=== PATIENT | male | born 1985 | race Caucasian/White ===

== ENCOUNTER 2017-03-05 13:42 | Emergency (ER) | payer BC ==
[~2017-03-05] VITALS: Ht 190.5 cm; Wt 112.5 kg
[2017-03-05 13:48] VITALS: TEMP 36.9; Ht 190.5 cm; Wt 112.5 kg
[2017-03-05 14:51] VITALS: O2SAT 100
--- NOTE | 2017-03-05 15:08 | EMERGENCY ROOM VISIT NOTE ---
History Report prepared by Thanh: Ang Cardoza Under the Supervision of: Dr. Armando Ocasio M.D. First contact with patient: 14:46 Chief Complaint: CHEST PAIN Stated Complaint: CHEST TIHGTNESS Nursing Triage Summary: Pt reports "chest heavyness" that started last night at 2200 Pt reports it was gone by this morning denies any other sx History of Present Illness The patient is a 31 year old male who presents to the Emergency Room with complaints of intermittent chest heaviness starting about 16 hours ago. The last time he had something to eat prior to the onset of his symptoms was about 3 hours earlier. He was at baseline this morning. He currently denies any pain or symptoms. He was evaluated at [facility] for his symptoms who referred him to the Emergency Room. He denies lightheadedness, dizziness, shortness of breath , nausea, vomiting, or any other complaints. He did not have any recent travels , plane rides, or car trips. He denies any history of smoking cigarettes. 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 He denies any chest pain or discomfort with exertion. His father in 50s and 60s due to a heart attack. The patient does not have any medical problems. Source of History: patient Onset: about 16 hours ago Position: chest Symptom Intensity: No pain or discomfort currently Quality: other (heaviness) Timing: intermittent Associated Symptoms: No SOB, No nausea, No vomiting Review of Systems See HPI for pertinent positives & negatives. A total of 10 systems reviewed and were otherwise negative. Past Medical & Surgical Medical Problems: (1) No Known Active Medical Problems Family History Heart disease Social History Smoking Status: Never Smoker Marital Status: Occupation Status: employed Current/Historical Medications No Active Prescriptions or Reported Meds Allergies Coded Allergies: No Known Allergies (Unverified , 03/05/17) Physical Exam Vital Signs Date Time Temp Pulse Resp B/P Pulse Ox O2 Delivery O2 Flow Rate FiO2 03/05/17 17:09 76 16 143/89 100 03/05/17 16:00 74 20 149/98 100 Room Air 03/05/17 15:08 69 20 170/99 97 Room Air 03/05/17 14:51 100 Room Air 03/05/17 14:50 76 20 149/89 100 Room Air 03/05/17 13:48 36.9 72 18 124/65 100 Room Air 03/05/17 13:48 100 Room Air Physical Exam GENERAL: Patient is a healthy-appearing well-nourished HEAD: Normocephalic atraumatic EYES: Ocular movements intact pupils equal and react to light OROPHARYNX mucous membranes are moist no exudates present no erythema or edema present NECK: Supple no nuchal rigidity CHEST: Good equal expansion LUNGS: Clear and equal to auscultation CARDIAC: Normal S1 and S2 ABDOMEN: Soft nontender no guarding BACK: No CVA tenderness EXTREMITIES: No pain upon palpation normal muscle strength in all groups no clubbing cyanosis or edema NEURO: Patient is following commands is answering questions appropriately. Alert and oriented x3 Cranial Nerves 2-12 grossly intact Medical Decision & Procedures ER Provider Diagnostic Interpretation: X-ray results as stated below per interpretation by me and the radiologist: CHEST ONE VIEW PORTABLE HISTORY: Atypical CHEST PAIN COMPARISON: None. FINDINGS: The lungs are clear. Cardiac silhouette is normal in size. No pleural effusions. No pneumothorax. IMPRESSION: No acute process. Electronically signed by: Ayan Lorenzo M.D. 03/05/2017 3:25 PM Dictated Date/Time: 03/05/2017 3:24 PM Laboratory Results 03/05/17 15:08 Red Blood Count 5.17, Mean Corpuscular Volume 85.9, Mean Corpuscular Hemoglobin 30.6, Mean Corpuscular Hemoglobin Concent 35.6, Mean Platelet Volume 10.0, Neutrophils (%) (Auto) 68.4, Lymphocytes (%) (Auto) 23.9, Monocytes (%) (Auto) 6.2, Eosinophils (%) (Auto) 1.0, Basophils (%) (Auto) 0.3, Neutrophils # (Auto) 3.98, Lymphocytes # (Auto) 1.39, Monocytes # (Auto) 0.36, Eosinophils # (Auto) 0.06, Basophils # (Auto) 0.02 03/05/17 15:08 Test 03/05/17 15:08 03/05/17 16:37 White Blood Count 5.82 K/uL (4.8-10.8) Red Blood Count 5.17 M/uL (4.7-6.1) Hemoglobin 15.8 g/dL (14.0-18.0) Hematocrit 44.4 % (42-52) Mean Corpuscular Volume 85.9 fL (80-100) Mean Corpuscular Hemoglobin 30.6 pg (25-34) Mean Corpuscular Hemoglobin Concent 35.6 g/dl (32-36) Platelet Count 235 K/uL (130-400) Mean Platelet Volume 10.0 fL (7.4-10.4) Neutrophils (%) (Auto) 68.4 % Lymphocytes (%) (Auto) 23.9 % Monocytes (%) (Auto) 6.2 % Eosinophils (%) (Auto) 1.0 % Basophils (%) (Auto) 0.3 % Neutrophils # (Auto) 3.98 K/uL (1.4-6.5) Lymphocytes # (Auto) 1.39 K/uL (1.2-3.4) Monocytes # (Auto) 0.36 K/uL (0.11-0.59) Eosinophils # (Auto) 0.06 K/uL (0-0.5) Basophils # (Auto) 0.02 K/uL (0-0.2) RDW Standard Deviation 41.0 fL (36.4-46.3) RDW Coefficient of Variation 13.0 % (11.5-14.5) Immature Granulocyte % (Auto) 0.2 % Immature Granulocyte # (Auto) 0.01 K/uL (0.00-0.02) Anion Gap 5.0 mmol/L (3-11) Est Creatinine Clear Calc Drug Dose 158.0 ml/min Estimated GFR () 129.6 Estimated GFR (Non- 111.8 BUN/Creatinine Ratio 11.7 (10-20) Calcium Level 9.4 mg/dl (8.5-10.1) Total Bilirubin 0.8 mg/dl (0.2-1) Direct Bilirubin 0.2 mg/dl (0-0.2) Aspartate Amino Transf (AST/SGOT) 17 U/L (15-37) Alanine Aminotransferase (ALT/SGPT) 41 U/L (12-78) Alkaline Phosphatase 76 U/L (45-117) Total Creatine Kinase 112 U/L (39-308) Creatine Kinase MB < 0.5 ng/ml (0.5-3.6) Creatine Kinase MB Ratio (0-3.0) Troponin I < 0.015 ng/ml (0-0.045) Total Protein 8.1 gm/dl (6.4-8.2) Albumin 4.5 gm/dl (3.4-5.0) Lipase 156 U/L (73-393) Bedside Troponin I 0.000 ng/ml (0-0.045) Labs reviewed by ED physician. ECG Indication: chest pain Rate (beats per minute): 63 Rhythm: normal sinus Findings: no acute ischemic change, no ectopy Change: Repeat EKG showed normal sinus rhythm, 68 beats per minute, no ectopy, no acute ischemic changes. ED Course 1446: Past medical records reviewed. The patient was evaluated in room A05. A complete history and physical examination was performed. 1655: Upon reexamination the patient is resting comfortably. I discussed results and treatment plan with the patient. He verbalizes agreement and understanding. The patient is ready for discharge. Medical Decision Differential diagnosis: Etiologies such as cardiac ischemia, aortic dissection, pulmonary embolism, pneumonia, pneumothorax, musculoskeletal, infections, pericarditis, myocarditis , esophageal rupture, gastrointestinal, as well as others were entertained. This is a 31-year-old male who presents emergency department complaining of chest pressure that occurred last evening after the patient laid down to go to bed. He is currently pain-free in the emergency department. Serial EKGs were performed on the patient in the emergency department and these were unchanged. In addition the patient also has normal CK-MB troponin as well as a repeat troponin level. I believe based on these findings at the patient as well as to be discharged home however I did stress the need for follow-up with cardiology and have no strenuous activity until her follow-up. Patient was in agreement with the treatment plan. Impression Primary Impression: Precordial chest pain Scribe Attestation The scribe's documentation has been prepared under my direction and personally reviewed by me in its entirety. I confirm that the note above accurately reflects all work, treatment, procedures, and medical decision making performed by me. Departure Information Dispostion Home / Self-Care Prescriptions No Active Prescriptions or Reported Meds Referrals Rosy Watt D.O., Michael G., DO Forms HOME CARE DOCUMENTATION FORM, IMPORTANT VISIT INFORMATION Patient Instructions Chest Pain - [facility], [facility] Additional Instructions Follow up with Dr Herr or Material Damage Adjuster @ home within the week No strenuous activity until follow up You have been examined and treated today on an emergency basis only. This is not a substitute for, or an effort to provide, complete comprehensive medical care. It is impossible to recognize and treat all injuries or illnesses in a single emergency department visit. It is therefore important that you follow up closely with Dr Watt. Call as soon as possible for an appointment. Thank you for your time and consideration. I look forward to speaking with you again soon. Please don't hesitate to call us if you have any questions.
[2017-03-05 15:24] LABS: BASO % 0.3 %; BASO ABS # 0.02 K/uL (0-0.2); COMPLETE YES; HEMATOCRIT 44.4 % (42-52); IG% 0.2 %; LYMPH % 23.9 %; LYMPH ABS # 1.39 K/uL (1.2-3.4); MEAN CELL VOLUME 85.9 fL (80-100); MEAN CORPUSCULAR HEMOGLOBIN 30.6 pg (25-34); MEAN CORPUSCULAR HGB CONC 35.6 g/dl (32-36); MONO % 6.2 %; NEUT % 68.4 %; PLATELET COUNT 235 K/uL (130-400); RED BLOOD COUNT 5.17 M/uL (4.7-6.1); WHITE BLOOD COUNT 5.82 K/uL (4.8-10.8)
--- NOTE | 2017-03-05 15:27 | DIAGNOSTIC IMAGING REPORT ---
CHEST ONE VIEW PORTABLE HISTORY: Atypical CHEST PAIN COMPARISON: None. FINDINGS: The lungs are clear. Cardiac silhouette is normal in size. No pleural effusions. No pneumothorax. IMPRESSION: No acute process. Electronically signed by: Ayan Lorenzo M.D. 03/05/2017 3:25 PM Dictated Date/Time: 03/05/2017 3:24 PM
[2017-03-05 15:46] LABS: ALT/SGPT 41 U/L (12-78); AST/SGOT 17 U/L (15-37); BLOOD UREA NITROGEN 11 mg/dl (7-18); BUN/CREATININE RATIO 11.7 (10-20); CALCIUM 9.4 mg/dl (8.5-10.1); CARBON DIOXIDE 30 mmol/L (21-32); CHLORIDE 104 mmol/L (98-107); GLUCOSE 98 mg/dl (70-99); POTASSIUM 3.7 mmol/L (3.5-5.1); SODIUM 139 mmol/L (136-145)
[2017-03-05 15:51] LABS: ALKALINE PHOSPHATASE 76 U/L (45-117)
[2017-03-05 17:09] VITALS: BP 143/89; PULSE 76; O2SAT 100
== END 2017-03-05 17:10 | disposition home or self-care (01) ==
LOC: C.EDB 13:46 → C.EDA 17:10
DX: R07.2 Precordial pain (principal)